=== PATIENT | male | born 1950 | race Caucasian/White ===

== ENCOUNTER 2018-08-30 02:19 | Inpatient (IN) | payer MEDICARE, MEDICAID ==
[2018-08-30] VITALS (22 sets, daily range): BP systolic 97–130; BP diastolic 51–66; Ht 180.3 cm; Wt 60.5 kg
[~2018-08-30] VITALS: Ht 180.3 cm; Wt 60.5 kg
[2018-08-30] MEDS ORDERED: BENADRYL25 MG PO (02:25)
[2018-08-30] MEDS ORDERED: COLACE100 MG PO (02:25)
[2018-08-30] MEDS ORDERED: ACETAZOLAMIDE250 MG PO (02:25)
[2018-08-30] MEDS ORDERED: MAG-OX 400 MG400 MG PO (02:26)
[2018-08-30] MEDS ORDERED: HUMALOG 30100 UNITS/ SC (02:26)
[2018-08-30] MEDS ORDERED: REMERON15 MG PO (02:27)
[2018-08-30] MEDS ORDERED: GLUCOPHAGE500 MG PO (02:27)
[2018-08-30] MEDS ORDERED: K-TAB10 MEQ (02:27)
[2018-08-30] MEDS ORDERED: VITAMIN D5000 UNIT PO (02:28)
[2018-08-30] MEDS ORDERED: PRAVACHOL40 MG PO (02:28)
[2018-08-30] MEDS ORDERED: KENALOG 0.1 % O15 GM TOPICAL (02:28)
[2018-08-30] MEDS ORDERED: SYNTHROID112 MCG PO (02:28)
[2018-08-30 03:04] LABS: APPEARANCE CLEAR (CLEAR); BILIRUBIN NEGATIVE (NEGATIVE); COLOR COLORLESS (YELLOW); GLUCOSE 1000 mg/dL (NEGATIVE); KETONE LARGE mg/dL (NEGATIVE); NITRITE NEGATIVE (NEGATIVE); PROTEIN NEGATIVE (NEGATIVE); SPECIFIC GRAVITY 1.015 (1.005-1.020); UROBILINOGEN NORMAL (NORMAL)
[2018-08-30 03:05] LABS: BASOPHILS 0.1 % (0-2); EOSINOPHILS 0 % (0-7); HEMATOCRIT 41.2 % (42.0-54.0); HEMOGLOBIN 12.9 g/dL (13.5-17.5); IMMATURE GRANULOCYTES 0.3 % (0-5); LYMPHOCYTES 16.8 % (15-50); MCH 30.4 pg (26.0-34.0); MCHC 31.3 g/dL (31.0-37.0); MCV 97.2 fL (80.0-100.0); MEAN PLATELET VOLUME 10.6 fL (7.4-10.4); MONOCYTES 1.7 % (2-11); NEUTROPHILS 81.1 % (40-80); PLATELET COUNT 253 10x3/uL (130-400); RBC 4.24 10x6/uL (4.20-6.10); RDW 13.5 % (11.5-14.5); WBC 7.5 10x3/uL (4.8-10.8)
[2018-08-30 03:20] LABS: ALBUMIN 3.4 g/dL (3.4-5.0); ANION GAP 32.5 mmol/L (8-16); BILIRUBIN - TOTAL 0.25 mg/dL (0.2-1.3); CALCIUM 8.6 mg/dL (8.5-10.1); CREATININE - SERUM 2.1 mg/dL (0.6-1.3); POTASSIUM - SERUM 4.9 mmol/L (3.5-5.1)
[2018-08-30 03:22] LABS: CARBON DIOXIDE 6.4 mmol/L (21.0-32.0)
[2018-08-30 06:13] LABS: ANION GAP 30.1 mmol/L (8-16); CALCIUM 8.8 mg/dL (8.5-10.1); MAGNESIUM - SERUM 1.9 mg/dL (1.8-2.4); POTASSIUM - SERUM 4.3 mmol/L (3.5-5.1)
[2018-08-30 06:30] LABS: CARBON DIOXIDE 8.2 mmol/L (21.0-32.0)
[2018-08-30 12:18] LABS: ANION GAP 15.2 mmol/L (8-16); CALCIUM 8.5 mg/dL (8.5-10.1); MAGNESIUM - SERUM 1.7 mg/dL (1.8-2.4); POTASSIUM - SERUM 3.9 mmol/L (3.5-5.1)
[2018-08-30 12:19] LABS: CARBON DIOXIDE 20.7 mmol/L (21.0-32.0); CREATININE - SERUM 1.3 mg/dL (0.6-1.3)
[2018-08-30 17:36] LABS: ANION GAP 16.5 mmol/L (8-16); CARBON DIOXIDE 17.6 mmol/L (21.0-32.0); CREATININE - SERUM 1.3 mg/dL (0.6-1.3); MAGNESIUM - SERUM 1.6 mg/dL (1.8-2.4); POTASSIUM - SERUM 4.1 mmol/L (3.5-5.1)
[2018-08-30 23:42] LABS: ANION GAP 15.6 mmol/L (8-16); CALCIUM 8.1 mg/dL (8.5-10.1); CREATININE - SERUM 1.1 mg/dL (0.6-1.3); MAGNESIUM - SERUM 1.5 mg/dL (1.8-2.4); POTASSIUM - SERUM 3.6 mmol/L (3.5-5.1)
[2018-08-31] VITALS (18 sets, daily range): BP systolic 103–139; BP diastolic 51–67
[2018-08-31 04:31] LABS: BASOPHILS 0.4 % (0-2); IMMATURE GRANULOCYTES 0.3 % (0-5); LYMPHOCYTES 28.9 % (15-50); MCH 29.7 pg (26.0-34.0); MCHC 33.2 g/dL (31.0-37.0); MEAN PLATELET VOLUME 10.5 fL (7.4-10.4); MONOCYTES 8.3 % (2-11); NEUTROPHILS 60.1 % (40-80); PLATELET COUNT 206 10x3/uL (130-400); RBC 3.43 10x6/uL (4.20-6.10); RDW 13.3 % (11.5-14.5); WBC 7.8 10x3/uL (4.8-10.8)
[2018-08-31 04:39] LABS: HEMATOCRIT 30.7 % (42.0-54.0); HEMOGLOBIN 10.2 g/dL (13.5-17.5)
[2018-08-31 04:40] LABS: MCV 89.5 fL (80.0-100.0)
[2018-08-31 04:50] LABS: CALC OSMOLALITY 299 mosm/kg (275-300); CALCIUM 7.9 mg/dL (8.5-10.1); CARBON DIOXIDE 17.9 mmol/L (21.0-32.0); CHLORIDE - SERUM 112 mmol/L (98-107); POTASSIUM - SERUM 3.5 mmol/L (3.5-5.1); SODIUM 142 mmol/L (136-145); UREA NITROGEN 31 mg/dL (7-18); eGFR NON AFRICAN AMERICAN 79 mL/min (90-120)
[2018-08-31 04:52] LABS: GLUCOSE 284 mg/dL (74-106)
[2018-09-01] VITALS (12 sets, daily range): BP systolic 114–144; BP diastolic 57–72
[2018-09-01 18:27] LABS: BASOPHILS 0.4 % (0-2); HEMATOCRIT 32.2 % (42.0-54.0); HEMOGLOBIN 10.8 g/dL (13.5-17.5); IMMATURE GRANULOCYTES 0.4 % (0-5); LYMPHOCYTES 24.7 % (15-50); MCH 29.9 pg (26.0-34.0); MCHC 33.5 g/dL (31.0-37.0); MCV 89.2 fL (80.0-100.0); MEAN PLATELET VOLUME 10.3 fL (7.4-10.4); MONOCYTES 7.3 % (2-11); NEUTROPHILS 65.2 % (40-80); RBC 3.61 10x6/uL (4.20-6.10); RDW 13.5 % (11.5-14.5); WBC 7.6 10x3/uL (4.8-10.8)
[2018-09-01 18:28] LABS: PLATELET COUNT 145 10x3/uL (130-400)
[2018-09-01 18:36] LABS: CALCIUM 7.7 mg/dL (8.5-10.1); CARBON DIOXIDE 20.5 mmol/L (21.0-32.0); CHLORIDE - SERUM 113 mmol/L (98-107); POTASSIUM - SERUM 3.2 mmol/L (3.5-5.1); SODIUM 141 mmol/L (136-145)
[2018-09-01 18:47] LABS: CALC OSMOLALITY 281 mosm/kg (275-300); CREATININE - SERUM 0.7 mg/dL (0.6-1.3); GLUCOSE 108 mg/dL (74-106); UREA NITROGEN 13 mg/dL (7-18); eGFR NON AFRICAN AMERICAN > 90 mL/min (90-120)
[2018-09-02 06:40] VITALS: BP 124/65
[2018-09-02 08:19] VITALS: BP 121/60
[2018-09-02 11:52] VITALS: BP 119/24
[2018-09-02 12:53] LABS: BASOPHILS 0.4 % (0-2); EOSINOPHILS 3.4 % (0-7); HEMATOCRIT 34.2 % (42.0-54.0); HEMOGLOBIN 11.4 g/dL (13.5-17.5); IMMATURE GRANULOCYTES 0.1 % (0-5); LYMPHOCYTES 19.7 % (15-50); MCH 30.3 pg (26.0-34.0); MCHC 33.3 g/dL (31.0-37.0); MEAN PLATELET VOLUME 10.7 fL (7.4-10.4); MONOCYTES 6.5 % (2-11); NEUTROPHILS 69.9 % (40-80); PLATELET COUNT 134 10x3/uL (130-400); RBC 3.76 10x6/uL (4.20-6.10); RDW 13.9 % (11.5-14.5); WBC 7.7 10x3/uL (4.8-10.8)
[2018-09-02 13:09] LABS: CALC OSMOLALITY 280 mosm/kg (275-300); CALCIUM 7.6 mg/dL (8.5-10.1); CARBON DIOXIDE 17.5 mmol/L (21.0-32.0); CHLORIDE - SERUM 109 mmol/L (98-107); CREATININE - SERUM 0.7 mg/dL (0.6-1.3); POTASSIUM - SERUM 3.3 mmol/L (3.5-5.1); SODIUM 137 mmol/L (136-145); UREA NITROGEN 10 mg/dL (7-18); eGFR NON AFRICAN AMERICAN > 90 mL/min (90-120)
[2018-09-02 13:13] LABS: GLUCOSE 234 mg/dL (74-106)
[2018-09-02 16:10] VITALS: BP 149/76
[2018-09-02] MEDS ORDERED: INVANZ 1 GM/NS 11 G1 IM (17:22)
[2018-09-02 20:00] VITALS: BP 108/65
[2018-09-03] VITALS: BP 156/66
[2018-09-03 04:00] VITALS: BP 133/65
[2018-09-03 09:00] VITALS: BP 125/62
== END 2018-09-03 17:50 | DRG 638 ==
LOC: D.ER 02:19 → D.ICU 05:18 → D.M3 05:18
PROVIDERS: Family Medicine
DX: E11.10 Type 2 diabetes mellitus with ketoacidosis without coma (principal); F33.0 Major depressive disorder, recurrent, mild; I25.10 Atherosclerotic heart disease of native coronary artery without angina pectoris; H54.7 Unspecified visual loss; E03.9 Hypothyroidism, unspecified; E83.42 Hypomagnesemia; E86.0 Dehydration; E87.6 Hypokalemia; E78.5 Hyperlipidemia, unspecified; Z95.1 Presence of aortocoronary bypass graft; Z86.73 Personal history of transient ischemic attack (TIA), and cerebral infarction without residual deficits